=== PATIENT | female | born 1975 | race Native Hawaiian/Other Pacific Islander ===

== ENCOUNTER 2019-08-14 09:26 | Emergency (ER) | payer SELFPAY ==
--- NOTE | 2019-08-14 10:06 | ED Physician Documentation ---
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 She had a positive home test yesterday and then in the evening she developed cramping and bleeding and she has passed some tissue about 1:00 in the morning. She has come into the emergency department today for evaluation. She states that her pain and her bleeding have both reduced. Review of Systems Constitutional: denies: Fever Eyes: denies: Decreased vision Ears: denies: Ear pain Nose: denies: Rhinorrhea / runny nose, Congestion Throat: denies: Sore throat Cardiac: denies: Chest pain / pressure, Palpitations Respiratory: denies: Dyspnea, Cough GI: reports: Abdominal Pain, Nausea. 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 : None HEENT: None Psych: None Musculoskeletal: None Derm: None - Past Surgical History Past Surgical History: No - Allergies Allergies/Adverse Reactions: Allergies Allergy/AdvReac Type Severity Reaction Status Date / Time No Known Drug Allergies Allergy Verified 08/14/19 09:38 - Social History Does the pt smoke?: No Smoking Status: Never smoker Does the pt drink ETOH?: No Does the pt have substance abuse?: No - Immunizations Immunizations are current?: Yes PD ED PE NORMAL - Vitals Vital signs reviewed: Yes (normal ) - General General: Alert and oriented X 3, No acute distress, Well developed/nourished - HEENT HEENT: Atraumatic, PERRL, EOMI - Neck Neck: Supple, no meningeal sign - Respiratory Respiratory: No respiratory distress - Abdomen Abdomen: Soft, Non tender, Non distended - Derm Derm: Normal color, Warm and dry, Other - Extremities Extremities: No deformity, No edema, No calf tenderness / cord - Neuro Neuro: Alert and oriented X 3, 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, No motor deficit, No sensory deficit, Normal speech Eye Opening: Spontaneous Motor: Obeys Commands Verbal: Oriented GCS Score: 15 - Psych Psych: Normal mood, Normal affect Results - Vitals Vitals: Vital Signs - 24 hr 08/14/19 08/14/19 08/14/19 09:35 09:42 11:55 Temperature 36.5 C 36.7 C Heart Rate 68 70 58 L Respiratory 15 16 18 Rate Blood Pressure 139/63 H 136/64 H 136/89 H O2 Saturation 100 99 100 08/14/19 13:34 Temperature 37.3 C Heart Rate 71 Respiratory 16 Rate Blood Pressure 138/82 H O2 Saturation 100 Oxygen O2 Source Room air - Labs Labs: Laboratory Tests 08/14/19 08/14/19 10:25 11:00 HCG, Quant 8897.00 Urine Color DARK YELLOW Urine Clarity CLEAR Urine pH 5.5 Ur Specific Lang[place] 1.025 Urine Protein TRACE Urine Glucose (UA) NEGATIVE Urine Ketones 15 H Urine Occult Blood LARGE H Urine Nitrite NEGATIVE Urine Bilirubin NEGATIVE Urine Urobilinogen 0.2 (NORMAL) Ur Leukocyte Esterase NEGATIVE Urine RBC 0-5 Urine WBC 0-3 Ur Squamous Epith Cells MOD Squamous H Urine Bacteria Moderate H Ur Microscopic Review INDICATED Urine Culture Comments NOT INDICATED - Rads (name of study) u/s ob Radiology: Prelim report reviewed (Impression: 1. No intrauterine . Cystic structure within the right ovary suggestive of corpus luteal cyst. Recommend correlation of beta-hCG levels and if concern persist for potential ectopic, short interval imaging follow-up is recommended.), EMP read indepedently, See rad report Procedures - Bedside sono Bedside sono by EMP: With his bedside ultrasound the pelvis is imaged the bladder is empty there does appear to be blood in the uterus. I am not able to identify a pole or gestational sac. PD MEDICAL DECISION MAKING - ED course Complexity details: reviewed results, re-evaluated patient, considered differential, d/w patient Departure - Departure Disposition: 01 Home, Self Care Clinical Impression: Hemorrhage, , early Condition: Stable Instructions: ED Abdominal Pain Rule Out Ectopic, ED Miscarriage Poss Follow-Up: [facility] [Provider Group] Comments: Today we were not able to see a in the uterus. This may be too early to see, it may have been expelled or the may be outside of the uterus. It is important to follow up in 2 days for a repeat blood test to check the hcG. Your number today is [id number]. It is usually difficult to see the this early and this number should go up dramatically in the next 2 days. If it is going down that means the is terminated. If it does not go up fast enough this could be "ectopic" and will require further treatment. Forms: Activity restrictions
[2019-08-14 11:10] LABS: BILIRUBIN,URINE NEGATIVE (NEGATIVE); GLUCOSE, URINE (UA) NEGATIVE (NEGATIVE); KETONES,URINE (UA) 15 mg/dL (NEGATIVE); LEUKOCYTE ESTERASE, URINE NEGATIVE (NEGATIVE); NITRITE,URINE NEGATIVE (NEGATIVE); OCCULT BLOOD,URINE LARGE (NEGATIVE); PH,URINE 5.5 PH (5.0-7.5); PROTEIN,URINE TRACE mg/dL (NEGATIVE); UROBILINOGEN,URINE 0.2 (NORMAL) E.U./dL (NORMAL)
[2019-08-14 11:12] LABS: CLARITY,URINE CLEAR (CLEAR)
[2019-08-14 11:25] LABS: BACTERIA,URINE Moderate /HPF (None Seen); RBC,URINE 0-5 /HPF (0-5); SQUAMOUS EPITHELIAL CELL,UR MOD Squamous (<= Few)
--- NOTE | 2019-08-14 12:46 | Ultrasound Report ---
PROCEDURE: OB First Trimester INDICATIONS: 8wks cramping bleeding OUTSIDE/PRIOR DATING DATA: Last menstrual period (LMP): 06/14/19. LMP-based estimated date of delivery (TAMMIE): 03/20/20. First dating scan (date and location): 08/14/19. Estimated date of delivery (TAMMIE) from first dating scan: n/a. TECHNIQUE: Real-time scanning was performed of the fetus and maternal pelvic organs, with image documentation. COMPARISON: None FINDINGS: No intrauterine gestational sac is identified. Uterus is unremarkable. No free fluid. Measurement variability in dating: +/- 4 weeks by LMP, +/- 7 days by mean sac diameter (use before 6 weeks gestation if crown-rump length not able to be measured), +/- 5 days by crown-rump length (6-12 weeks gestation). Maternal organs: Ovaries demonstrate a cystic structure within the right ovary.. Limited images thr ough the kidneys demonstrate no hydronephrosis. IMPRESSION: 1. No intrauterine . 2. Cystic structure within the right ovary suggestive of corpus luteal cyst. Recommend correlation of beta hCG levels and if concern persists for potential ectopic, short interval imaging follow-up is r ecommended. Reviewed by: Skye Velasquez MD on 08/14/2019 12:44 PM PDT Approved by: Skye Velasquez MD on 08/14/2019 12:44 PM PDT Station ID: [id number]
--- NOTE | 2019-08-14 12:47 | Ultrasound Report ---
PROCEDURE: OB Transvaginal INDICATIONS: 8wks cramping bleeding TECHNIQUE: Sonographic images of the pelvis were obtained. COMPARISON: OB ultrasound 08/14/2019 FINDINGS: No intrauterine gestational sac is identified. Uterus is unremarkable. No free fluid. Measurement variability in dating: +/- 4 weeks by LMP, +/- 7 days by mean sac diameter (use before 6 weeks gestation if crown-rump length not able to be measured), +/- 5 days by crown-rump length (6-12 weeks gestation). Maternal organs: Ovaries demonstrate a cystic structure within the right ovary.. Limited images thr ough the kidneys demonstrate no hydronephrosis. IMPRESSION: 1. No intrauterine . 2. Cystic structure within the right ovary suggestive of corpus luteal cyst. Recommend correlation of beta hCG levels and if concern persists for potential ectopic, short interval imaging follow-up is r ecommended. Reviewed by: Skye Velasquez MD on 08/14/2019 12:45 PM PDT Approved by: Skye Velasquez MD on 08/14/2019 12:45 PM PDT Station ID: [id number]
[2019-08-14 13:35] VITALS: BP 138/82
== END 2019-08-14 14:02 | disposition home or self-care (01) ==
LOC: ED 09:26
DX: O20.9 Hemorrhage in early pregnancy, unspecified (principal); O09.511 Supervision of elderly primigravida, first trimester; Z3A.08 8 weeks gestation of pregnancy
CPT/HCPCS: 36415; 76801; 76817; 81001; 81003; 84702; 87086; 99284

== ENCOUNTER 2019-09-02 11:53 | Outpatient (CLI) | payer SELFPAY | END 2019-09-02 11:54 | disposition home or self-care (01) | LOC: LAB 11:53 | PROVIDERS: ATTEND Advanced Practice Midwife | DX: O03.4 Incomplete spontaneous abortion without complication (principal) | CPT/HCPCS: 36415; 84702 ==

== ENCOUNTER 2020-09-14 07:00 | Outpatient (CLI) | payer OTHER | END 2020-09-14 23:59 | disposition home or self-care (01) | LOC: COV 07:00 | PROVIDERS: ATTEND Family Medicine | DX: Z20.822 Contact with and (suspected) exposure to COVID-19 (principal) ==